=== PATIENT | male | born 1950 | race Caucasian/White ===

== ENCOUNTER → 2018-02-10 | Outpatient (CLI) | payer OTHER | END | disposition home or self-care (01) | LOC: CFH 07:18 | PROVIDERS: ATTEND Nurse Practitioner Family | DX: R22.2 Localized swelling, mass and lump, trunk (principal) | CPT/HCPCS: 76700 ==

== ENCOUNTER 2019-01-08 19:45 | Inpatient (IN) | payer OTHER, MEDICARE ==
[~2019-01-08] VITALS: Ht 182.9 cm; Wt 115.1 kg
[2019-01-08 22:00] VITALS: BP 158/92
[2019-01-08] MEDS ORDERED: ATOR20TA37 PO (22:12)
[2019-01-08] MEDS ORDERED: LEVO25TA4 PO (22:12)
[2019-01-09] MEDS: ENOXAPARIN 40 MG/0.4 ML SQ SCH (01:00)
[2019-01-09] MEDS ORDERED: hydrALAzine 20 MG/ML, 1ML IVPush PRN (01:00)
[2019-01-09] MEDS ORDERED: ONDANSETRON 2MG/ML, 2ML IVPush PRN (01:00)
[2019-01-09] MEDS: ZOLPIDEM 5MG TABLET PO PRN ×2 (01:06→22:06)
[2019-01-09 01:15] LABS: BASOPHILS # (AUTO) 0.09 x10^3/uL (0-0.1); BASOPHILS % (AUTO) 1 % (0-1); EOSINOPHILS % (AUTO) 3 % (1-7); LYMPHOCYTES # (AUTO) 2.68 x10^3/uL (1-3.4); LYMPHOCYTES % (AUTO) 36 % (22-44); MD NO; MEAN CORPUSCULAR HEMOGLOBIN 30.4 pg (27.5-34.5); MEAN CORPUSCULAR HGB CONC 32.6 g/dL (33.2-36.2); MEAN CORPUSCULAR VOLUME 93.1 fL (81-97); MEAN PLATELET VOLUME 8.1 fL (7.4-10.4); MONOCYTES # (AUTO) 0.59 x10^3/uL (0.2-0.8); MONOCYTES % (AUTO) 8 % (2-9); NEUTROPHILS # (AUTO) 3.85 x10^3/uL (1.8-6.8); NEUTROPHILS % (AUTO) 52 % (42-75); PLATELET COUNT 445 x10^3/uL (130-400); RED BLOOD COUNT 4.77 x10^6/uL (4.38-5.82); RED CELL DISTRIBUTION WIDTH 14.2 % (9.4-14.8)
[2019-01-09 01:26] LABS: ANION GAP 6 mmol/L (5-15); CALCIUM 8.8 mg/dL (8.5-10.1); CHLORIDE 110 mmol/L (98-107); CREATININE 1.28 mg/dL (0.7-1.3)
[2019-01-09 01:29] VITALS: BP 161/77
[2019-01-09 01:30] LABS: TROPONIN I < 0.015 ng/mL (0.000-0.045)
[2019-01-09 07:15] VITALS: BP 136/77
[2019-01-09 07:21] LABS: TROPONIN I < 0.015 ng/mL (0.000-0.045)
[2019-01-09] MEDS ORDERED: LEVOTHYROXINE 25 MCG TABLET PO SCH (09:00)
[2019-01-09] MEDS: ATORVASTATIN 20 MG TABLET PO SCH (09:43)
[2019-01-09] MEDS: LISINOPRIL 5 MG TABLET PO SCH (09:43)
[2019-01-09] MEDS: ASPIRIN 325 MG TABLET EC PO SCH (09:56)
[2019-01-09 14:00] VITALS: BP 119/77
[2019-01-09 15:30] LABS: MICROSCOPIC AUTO
[2019-01-09 15:41] LABS: CULTURE INDICATED? NO
[2019-01-09] MEDS: FUROSEMIDE 20 MG/2 ML IV SCH (16:38)
[2019-01-09] MEDS: METOPROLOL TARTRATE 25 MG TABLET PO SCH (16:38)
[2019-01-09] MEDS: POTASSIUM CHLORIDE 20 MEQ TAB.ER.PRT PO SCH (16:38)
[2019-01-09 19:43] VITALS: BP 111/62
[2019-01-10 00:23] VITALS: BP 128/76
[2019-01-10] MEDS: ENOXAPARIN 40 MG/0.4 ML SQ SCH (01:04)
[2019-01-10 05:44] LABS: ANION GAP 7 mmol/L (5-15); CALCIUM 8.5 mg/dL (8.5-10.1); CHLORIDE 108 mmol/L (98-107)
[2019-01-10 05:50] LABS: CHOL/HDL RATIO 6.6; CHOLESTEROL, TOTAL 263 mg/dL (140-239); CREATININE 1.27 mg/dL (0.7-1.3); HDL CHOL % 15 % (26-37); HDL CHOLESTEROL (DIRECT) 40 mg/dL (40-60); LDL CHOLESTEROL,CALCULATED 196 mg/dL (54-169); LDL/HDL RATIO 4.9 (0.5-3.0); TRIGLYCERIDES 135 mg/dL (50-200); VLDL CHOLESTEROL 27 mg/dL (0-25)
[2019-01-10] MEDS ORDERED: LEVOTHYROXINE 25 MCG TABLET PO SCH (06:00)
[2019-01-10] MEDS: METOPROLOL TARTRATE 25 MG TABLET PO SCH (06:39)
[2019-01-10] MEDS: ASPIRIN 325 MG TABLET EC PO SCH (06:40)
[2019-01-10 07:50] VITALS: BP 115/71
[2019-01-10] MEDS ORDERED: REGADENOSON 0.4 MG/5 ML SYRINGE ONE (08:06)
[2019-01-10] MEDS: FUROSEMIDE 20 MG/2 ML IV SCH (11:27)
[2019-01-10] MEDS: POTASSIUM CHLORIDE 20 MEQ TAB.ER.PRT PO SCH (11:28)
[2019-01-10] MEDS: ATORVASTATIN 20 MG TABLET PO SCH (11:28)
[2019-01-10] MEDS: LISINOPRIL 5 MG TABLET PO SCH (11:28)
[2019-01-10 12:09] VITALS: BP 125/79
[2019-01-10] MEDS ORDERED: ATOR40TA78 PO ×3 (14:09)
[2019-01-10] MEDS ORDERED: LISI5TAB7 PO (14:09)
[2019-01-10] MEDS ORDERED: METO25TA35 PO (14:09)
[2019-01-10] MEDS ORDERED: FURO40TA6 PO (14:09)
[2019-01-10] MEDS ORDERED: POTA20PA31 PO (14:09)
== END 2019-01-10 16:00 | disposition home or self-care (01) | DRG 314 ==
LOC: 5SO 21:59 → DCLOUNGE 01-10 15:40
PROVIDERS: ADMIT Internal Medicine; ATTEND Internal Medicine
DX: R00.8 Other abnormalities of heart beat (principal); I50.43 Acute on chronic combined systolic (congestive) and diastolic (congestive) heart failure; I49.8 Other specified cardiac arrhythmias; I11.0 Hypertensive heart disease with heart failure; E03.9 Hypothyroidism, unspecified; E78.5 Hyperlipidemia, unspecified; F12.90 Cannabis use, unspecified, uncomplicated; I25.10 Atherosclerotic heart disease of native coronary artery without angina pectoris; I44.60 Unspecified fascicular block; Z87.440 Personal history of urinary (tract) infections; Z72.89 Other problems related to lifestyle; Z79.899 Other long term (current) drug therapy
CPT/HCPCS: 36415; 78452; 80048; 80061; 81001; 83735; 83880; 84443; 84484; 85025; 93005; 93017; 99285; G0378; J1650; J2785; A9502; J1940

== ENCOUNTER 2019-03-27 14:22 | Outpatient (CLI) | payer MEDICARE ==
[~2019-03-27 14:22] MED LIST: ATOR20TA37 PO; ATOR40TA78 PO; CETI10CA PO; FURO40TA6 PO; LEVO25TA4 PO; LISI5TAB7 PO; METO25TA35 PO; POTA20PA31 PO
== END 2019-03-27 23:59 | disposition home or self-care (01) ==
LOC: CVU 14:22
PROVIDERS: ATTEND Internal Medicine Cardiovascular Disease
DX: I34.0 Nonrheumatic mitral (valve) insufficiency (principal); I49.3 Ventricular premature depolarization; F12.10 Cannabis abuse, uncomplicated
CPT/HCPCS: 0399T; 93306

== ENCOUNTER → 2020-03-23 | Outpatient (CLI) | payer BC, MEDICARE | END | disposition home or self-care (01) | LOC: RAD 16:11 | PROVIDERS: ATTEND Physician Assistant | DX: M51.37 Other intervertebral disc degeneration, lumbosacral region (principal); M51.34 Other intervertebral disc degeneration, thoracic region | CPT/HCPCS: 72082; 72110 ==

== ENCOUNTER → 2020-03-28 | Outpatient (CLI) | payer BC, MEDICARE | END | disposition home or self-care (01) | LOC: CVU 10:27 | PROVIDERS: ATTEND Internal Medicine Cardiovascular Disease | DX: I08.0 Rheumatic disorders of both mitral and aortic valves (principal); I42.9 Cardiomyopathy, unspecified | CPT/HCPCS: 93306 ==

== ENCOUNTER → 2020-05-04 | Outpatient (CLI) | payer MEDICARE | END | disposition home or self-care (01) | LOC: RAD 16:14 | PROVIDERS: ATTEND Physician Assistant | DX: M54.5 Low back pain (principal); M41.9 Scoliosis, unspecified | CPT/HCPCS: 72082 ==

== ENCOUNTER → 2020-08-01 | Outpatient (CLI) | payer MEDICARE | END | disposition home or self-care (01) | LOC: RAD 10:34 | PROVIDERS: ATTEND Physician Assistant | DX: M47.817 Spondylosis without myelopathy or radiculopathy, lumbosacral region (principal); M41.86 Other forms of scoliosis, lumbar region | CPT/HCPCS: 72110 ==

== ENCOUNTER → 2020-11-09 | Outpatient (CLI) | payer MEDICARE | END | disposition home or self-care (01) | LOC: RAD 10:55 | PROVIDERS: ATTEND Student in an Organized Health Care Education/Training Program | DX: M43.27 Fusion of spine, lumbosacral region (principal) | CPT/HCPCS: 72100 ==

== ENCOUNTER 2020-12-28 15:25 | Outpatient (CLI) | payer MEDICARE | END 2020-12-28 23:59 | disposition home or self-care (01) | LOC: RAD 15:25 | PROVIDERS: ATTEND Student in an Organized Health Care Education/Training Program | DX: M51.36 Other intervertebral disc degeneration, lumbar region (principal); M48.061 Spinal stenosis, lumbar region without neurogenic claudication | CPT/HCPCS: 72110 ==

== ENCOUNTER 2021-01-18 13:43 | Outpatient (CLI) | payer MEDICARE | END 2021-01-18 23:59 | disposition home or self-care (01) | LOC: RAD 13:43 | PROVIDERS: ATTEND Neurological Surgery | DX: M54.5 Low back pain (principal) | CPT/HCPCS: 72110 ==

== ENCOUNTER → 2021-02-01 | Outpatient (CLI) | payer MEDICARE | END | disposition home or self-care (01) | LOC: RAD 12:58 | PROVIDERS: ATTEND Student in an Organized Health Care Education/Training Program | DX: S33.130A Subluxation of L3/L4 lumbar vertebra, initial encounter (principal); M43.06 Spondylolysis, lumbar region; M48.56XA Collapsed vertebra, not elsewhere classified, lumbar region, initial encounter for fracture; M47.816 Spondylosis without myelopathy or radiculopathy, lumbar region; X58.XXXA Exposure to other specified factors, initial encounter; Y93.89 Activity, other specified; Y92.89 Other specified places as the place of occurrence of the external cause; Y99.8 Other external cause status | CPT/HCPCS: 72131; 72158; A9575 ==